=== PATIENT | female | born 1980 | race Caucasian/White ===

== ENCOUNTER 2017-04-21 14:46 | Day surgery (SDC) | payer OTHER ==
[2017-04-21 15:05] VITALS: BMI 22.6
--- NOTE | 2017-04-21 15:08 | PDOC ---
Rapid Medical Evaluation Chief Complaint: Vaginal Bleeding Time Seen by Provider: 04/21/17 15:05 Medical Evaluation: Allergies Allergy/AdvReac Type Severity Reaction Status Date / Time No Known Allergies Allergy Verified 04/21/17 15:01 Vital Signs Temp Pulse Resp BP Pulse Ox 98.7 F 79 19 110/63 99 04/21/17 15:01 04/21/17 15:01 04/21/17 15:01 04/21/17 15:01 04/21/17 15:01 04/21/17 15:05 I have performed a brief in-person evaluation of this patient. The patient presents with a chief complaint of vaginal spotting and pain to right lower abdomen x 2 weeks. States seen [facility] and referred for surgery due to ectopic . , unknown length of . Denies dizziness or shortness of breath Pertinent physical exam findings NAD lungs clear bilaterally heart s1s2 abdomen + bs I have ordered the following: labs urine hcg ordered The patient will proceed to the ED for further evaluation. Discharge Disposition - Diagnosis Ectopic - Discharge Dispostion Condition at time of disposition: Stable - Referrals - Patient Instructions - Post Discharge Activity
--- NOTE | 2017-04-21 15:46 | PDOC ---
History of Present Illness - History of Present Illness Initial Comments: 04/21/17 16:07 The patient is a 37 year old female , with no significant past medical history, who presents to the emergency department for evaluation of ectopic sent in by Dr. Holland. The patient states she went to see her OB Dr. Holland earlier today for right sided abdominal pain for the past week, that worsend 2 days ago. The patient states she had a sonogram performed while at Dr. Villatoro office who reported she has an ectopic and advised her to come to the ED for further evaluation. The patient reports she has had recent vaginal bleeding for approx. 2 weeks which stopped this past Friday (2 days ago) after passing a large blood clot. The patient states her last LMP was 2017 and she states she does not have a history of ectopic pregnancies. She denies recent fevers, chills, headache or dizziness. She denies recent nausea, vomit, diarrhea or constipation. She denies recent dysuria, frequency, urgency or hematuria. She denies recent chest pain or shortness of breath. Allergies: NKA OB: Dr. Holland <Boom Levin - Last Filed: 04/21/17 16:49> - General History Source: Patient Exam Limitations: No Limitations - History of Present Illness Travel History: No <Jose Denny - Last Filed: 04/21/17 17:34> - General Chief Complaint: Vaginal Bleeding Stated Complaint: RT SIDE PAIN, PRE-OP Time Seen by Provider: 04/21/17 15:05 Past History <Boom Levin - Last Filed: 04/21/17 16:49> - Past Medical History COPD: No Other medical history: DENIES. - Suicide/Smoking/Psychosocial Hx Smoking History: Never smoked <Jose Denny - Last Filed: 04/21/17 17:34> - Past Medical History Allergies/Adverse Reactions: Allergies Allergy/AdvReac Type Severity Reaction Status Date / Time No Known Allergies Allergy Verified 04/21/17 15:01 Home Medications: Ambulatory Orders NK [No Known Home Medication] 04/21/17 Review of Systems - Review of Systems Comments:: 04/21/17 16:08 CONSTITUTIONAL: No reported: Fever, Chills, Diaphoresis, Generalized Weakness, Malaise, Loss of Appetite HEENT: No reported: Rhinorrhea, Nasal Congestion, Throat Pain, Throat Swelling, Difficulty Swallowing, Mouth Swelling, Ear Pain, Eye Pain, Visual Changes CARDIOVASCULAR: No reported: Chest Pain, Syncope, Palpitations, Irregular Heart Rate, Lightheadedness, Peripheral Edema RESPIRATORY: No reported: Cough, Shortness of Breath, SOB with Exertion, Orthopnea, Wheezing , Stridor, Hemoptysis GASTROINTESTINAL: Present: (+) Right sided abdominal pain. No reported: Abdominal Distension, Nausea, Vomiting, Diarrhea, Constipation, Melena, Hematochezia GENITOURINARY: Present: (+) Vaginal bleeding. No reported: Dysuria, Frequency, Urgency, Hesitancy, Flank Pain, Genital Pain MUSCULOSKELETAL: No reported: Myalgia, Arthralgia, Joint Swelling, Back pain, Neck Pain SKIN: No reported: Rash, Itching, Pallor HEMEATOLOGIC/IMMUNOLOGIC: No reported: Easy Bleeding, Easy Bruising, Lymphadenopathy, Frequent infections ENDOCRINE: No reported: Unexplained Weight Gain, Unexplained Weight Loss, Heat Intolerance , Cold Intolerance NEUROLOGIC: No reported: Headache, Focal Weakness, Paresthesias, Vertigo, Lightheadedness, Unsteady Gait, Seizure, Mental Status Changes, Incontinence PSYCHIATRIC: No reported: Anxiety, Depression <Boom Levin - Last Filed: 04/21/17 16:49> *Physical Exam - Vital Signs Last Vital Signs Temp Pulse Resp BP Pulse Ox 98.7 F 79 19 110/63 99 04/21/17 15:01 04/21/17 15:01 04/21/17 15:01 04/21/17 15:01 04/21/17 15:01 - Physical Exam Comments: 04/21/17 16:08 GENERAL: The patient is awake, alert, and fully oriented, Nontoxic - in no acute distress. HEAD: Normocephalic, atraumatic. EYES: extraocular movements intact, sclera anicteric, conjunctiva clear. ENT: Normal voice, Moist mucous membranes. NECK: Normal range of motion, supple LUNGS: Breath sounds equal, clear to auscultation bilaterally. No wheezes, no rhonchi, no rales. HEART: Regular rate and rhythm, without murmur, rub or gallop. ABDOMEN: (+) Mild right lower quadrant tenderness. No guarding, no rebound. EXTREMITIES: Normal range of motion, no edema. No clubbing or cyanosis. No cords , erythema, or tenderness. NEUROLOGICAL: No facial assymetry, Normal speech, PSYCH: Normal mood, normal affect. SKIN: Warm, Dry, normal turgor, <Boom Levin - Last Filed: 04/21/17 16:49> - Vital Signs Last Vital Signs Temp Pulse Resp BP Pulse Ox 98.7 F 79 19 110/63 99 04/21/17 15:01 04/21/17 15:01 04/21/17 15:01 04/21/17 15:01 04/21/17 15:01 <Jose Denny - Last Filed: 04/21/17 17:34> Heart Score/ECG Review - ECG Impressions Comment:: 04/21/17 16:51 Twelve-lead EKG was performed and reviewed by me. There is normal sinus rhythm with a normal rate. rate of 60 The axis is normal. The intervals are normal. There is normal R wave progression There are no ST or T wave abnormalities. Impression: Normal twelve-lead EKG <Jose Denny - Last Filed: 04/21/17 17:34> ED Treatment Course - LABORATORY CBC & Chemistry Diagram: 04/21/17 15:50 04/21/17 15:50 <Boom Levin - Last Filed: 04/21/17 16:49> - LABORATORY CBC & Chemistry Diagram: 04/21/17 15:50 04/21/17 15:50 <Jose Denny - Last Filed: 04/21/17 17:34> Medical Decision Making - Medical Decision Making 04/21/17 16:[address] Holland at 4:45 pm. Case discussed. <Boom Levin - Last Filed: 04/21/17 16:49> - Medical Decision Making 04/21/17 15:43 37y F presents with RLQ abd pain. Pt notes RLQ pain ~8 days, started when she went skiing, she thought it was a GI bug as her friends were also sick. She went to fu with dr. Holland who dx her with an ectopic preg on US and sent her to the ED for further evaluation and for operative management. Pt notes mild vag spotting/bleeding. denies any cp, sob, dizziness, fever/chills, back pain. will obtain preop labs, ekg pt declines pain medications pt NPO since approx 10am will dw dr. holland A portion of this note was documented by scribe services under my direction. I have reviewed the details of the note, within reason, and agree with the documentation with the following case summary and management plan written by me 04/21/17 17:[address] holland pt had free fluid and mass on her RLQ suspected ruptured ectopic pt is remarkably well appearing hemodynamically stable beta is 15k pt heading to the OR will admit under dr. Holland <Jose Denny - Last Filed: 04/21/17 17:34> *DC/Admit/Observation/Transfer - Attestations Scribe Attestion: 04/21/17 16:08 Documentation prepared by Boom Levin, acting as medical technicians for Jose Denny MD. <Boom Levin - Last Filed: 04/21/17 16:49> - Discharge Dispostion Admit: Yes <Jose Denny - Last Filed: 04/21/17 17:34> Diagnosis at time of Disposition: Ectopic Qualifiers: Location of ectopic : unspecified location Intrauterine status: unspecified Qualified Code(s): O00.90 - Unspecified ectopic without intrauterine - Discharge Dispostion Condition at time of disposition: Stable
[2017-04-21 16:06] LABS: BASO % 0.6 % (0-2.0); HEMATOCRIT 37.9 % (32.4-45.2); HEMOGLOBIN 12.9 GM/dL (10.7-15.3); LYMPH % 20.3 % (8-40); MCH 31.9 pg (25.7-33.7); MCHC 33.9 g/dl (32.0-36.0); MEAN PLT VOLUME 8.7 fl (7.5-11.1); MONO % 5.3 % (3.8-10.2); NEUT % 71.8 % (42.8-82.8); PLATELET COUNT 262 K/MM3 (134-434); RBC 4.03 M/mm3 (3.60-5.2); RDW 13.7 % (11.6-15.6); WHITE BLOOD COUNT 5.9 K/mm3 (4.0-10.0)
[2017-04-21 16:30] LABS: INR 1.11 (0.82-1.09); PROTHROMBIN TIME (PATIENT) 12.5 SEC (9.98-11.88)
[2017-04-21 16:33] LABS: ACTIVATED PTT 28.6 SECONDS (26.9-34.4)
[2017-04-21 16:34] LABS: ALBUMIN 4.3 g/dl (3.4-5.0); ALK PHOS 63 U/L (45-117); ANION GAP 11 (8-16); BILIRUBIN,TOTAL 0.4 mg/dL (0.2-1.0); BLOOD UREA NITROGEN 8 mg/dL (7-18); CALCIUM 9.2 mg/dL (8.5-10.1); CHLORIDE 104 mmol/L (98-107); CO2 26 mmol/L (21-32); CREATININE 0.7 mg/dL (0.55-1.02); GLUCOSE,RANDOM 86 mg/dL (74-106); POTASSIUM 3.9 mmol/L (3.5-5.1); SGOT/AST 25 U/L (15-37); SGPT/ALT 28 U/L (12-78); SODIUM 141 mmol/L (136-145); TOT PROT 8.1 g/dl (6.4-8.2)
[2017-04-21] MEDS ORDERED: KETOROLAC TROMETHAMINE 30 MG/1 ML VIAL ONE (17:36)
[2017-04-21] MEDS ORDERED: PROPOFOL 20 ML ONE (17:36)
[2017-04-21] MEDS ORDERED: SUCCINYLCHOLINE CHLORIDE 200 MG/10 ML VIAL ONE (17:36)
[2017-04-21] MEDS ORDERED: DEXAMETHASONE SOD PHOSPHATE 4 MG/1 ML VIAL ONE (17:36)
[2017-04-21] MEDS ORDERED: fentaNYL CITRATE 250 MCG/5 ML VIAL ONE (17:36)
[2017-04-21] MEDS ORDERED: LIDOCAINE HCL/PF 2% SDV 5ML VIAL ONE (17:36)
[2017-04-21] MEDS ORDERED: ROCURONIUM BROMIDE 50 MG/5 ML VIAL ONE (17:55)
[2017-04-21] MEDS ORDERED: BUPIVACAINE HCL/PF 0.25% (2.5MG/ML) 10 ML VIAL IJ ONE ×2 (18:18→18:36)
[2017-04-21] MEDS ORDERED: BUPIVACAINE HCL/PF 0.5% (5MG/ML) 10 ML VIAL ONE (18:21)
[2017-04-21] MEDS ORDERED: BUPIVACAINE HCL/PF 0.5% (5MG/ML) 10 ML VIAL IJ ONE (18:36)
[2017-04-21] MEDS ORDERED: NEOSTIGMINE METHYLSULFATE 0.5 MG/ML - 10 ML MDV ONE (18:37)
[2017-04-21] MEDS ORDERED: GLYCOPYRROLATE 0.2 MG/1 ML VIAL ONE ×2 (18:37)
[2017-04-21] MEDS ORDERED: PROMETHAZINE HCL 25 MG/1 ML VIAL IVPUSH PRN (18:52)
[2017-04-21] MEDS ORDERED: ONDANSETRON 4 MG/2 ML VIAL IVPUSH PRN (18:52)
[2017-04-21] MEDS ORDERED: oxyCODONE HCL 5 MG TABLET PO PRN (18:52)
[2017-04-21] MEDS ORDERED: LACTATED RINGERS SOLUTION 1,000 ML IV SCH (19:00)
--- NOTE | 2017-04-21 19:03 | OP ---
Operative Note - Note: Operative Date: 04/21/17 Pre-Operative Diagnosis: Ruptured right ectopic Operation: Laparoscopic right salpingectomy, D&C Findings: Large right ectopic , 100ml hemoperitoneum Post-Operative Diagnosis: Same as Pre-op Surgeon: Jaden Holland Director Behavioral Health: Julián Deng Anesthesiologist/GAS APPLIANCE REPAIRER: Hay Batres Anesthesia: General Specimens Removed: Right Fallopian tube, Endometrial curettings Estimated Blood Loss (mls): 100 (Hemoperitoneum) Drains & Tubes with Location: Johnson cath Drains, Volume Out (mls): 75 Blood Volume Replaced (mls): 0 Fluid Volume Replaced (mls): 1,000 Operative Report Dictated: Yes
--- NOTE | 2017-04-21 19:19 | HP ---
Past Medical History - Primary Care Physician PCP:: Jaden Holland - Admission Chief Complaint: 37yo P2 female was seen in the office today with a positive test, c/o vaginal bleeding and right pelvic pain. History of Present Illness: Pt had mild RLQ pain. Plevic US, done in the office, showed a large amount of hemoperitoneum and a suspected right ectopic . The pt was noted to be clinically well and o/w stable. She was referred to the ER for evaluation. History Source: Patient Limitations to Obtaining History: No Limitations - Past Medical History SENIOR RADIATION THERAPIST: No: Alzheimer's, CVA, Dementia, Migraine, Multiple Sclerosis, Peripheral Neuropathy, Parkinson's, Seizure, Syncope, TIA, Vertigo, Other Cardiovascular: No: AFIB, Aneurysm, Aortic Insufficiency, Aortic Stenosis, CAD, CHF, Deep Vein Thrombosis, HTN, Hyperlipdemia, MT, Mitral Insufficiency, Mitral Stenosis, Murmur, Pulmonary Hypertension, Other Pulmonary: No: Asthma, Bronchitis, Cancer, COPD, O2 Dependent, Pneumonia, Previously Intubated, Pulmonary Embolus, Pulmonary Fibrosis, Sleep Apnea, Other Gastrointestinal: No: Ascites, Cancer, Constipation, Crohn's Disease, Diverticulitis, Diverticulosis, Esophageal Varices, Gastritis, GERD, GI Bleed, Hemorrhoids, Hiatal Hernia, Inflamatory Bowel Disease, Irritable Bowel Disease, Pancreatitis, Peptic Ulcer Disease, Ulcerative Colitis, Other Hepatobiliary: No: Cirrhosis, Cholelithiasis, Cholecystitis, Choledocholithiasis , Hepatitis A, Hepatitis B, Hepatitis C, Other Renal/: No: Renal Failure, Renal Inusuff, BPH, Cancer, Hematuria, Hemodialysis , Neurogenic Bladder, Renal Calculi, UTI, Other Reproductive: No: Ectopic , Endometriosis, Fibroids, PID, Polycystic Ovary Syndrome, Postmenopausal, Other ...Para: 2 () ...Term: 2 ...LMP: 02/16/18 Heme/Onc: No: Anemia, B12 Deficiency, Bleeding Disorder, Cancer, Current Chemotherapy, Current Radiation Therapy, Hemochromatosis, Hypercoaguable State, Myeloproliferative Synd, Sickle Cell Disease, Sickle Cell Trait, Thrombocytopenia, Other Infectious Disease: No: AIDS, C-Diff, Herpes Zoster, HIV, MRSA, STD's, Tuberculosis, VREF, Other Psych: No: Addictions, Anxiety, Bipolar, Depression, Panic, Psychosis, Schizophrenia, Other Musculoskeletal: No: Bursitis, Chronic low back pain, Hemiparesis, Hemiplegia, Osteoarthritis, Paraplegia, Other Rheumatology: No: Fibromyalgia, Gout, Lupus, Rheumatoid Arthritis, Sarcoidosis, Vasculitis, Other ENT: No: Allergic Rhinitis, Sinusitis, Other Endocrine: No: Justin's Disease, Elmore's Disease, Diabetes Insipidus, Diabetes Mellitus, Hyperparathyroidism, Hyperthyroidism, Hypothyroidism, Osteopenia, SIADH, Other Dermatology: No: Basal Cell, Cellulitis, Eczema, Melanoma, Psoriasis, Squamous Cell, Other - Past Surgical History Past Surgical History: Yes: None Hx Myomectomy: No Hx Transabdominal Cerclage: No - Smoking History Smoking history: Never smoked - Alcohol/Substance Use Hx Alcohol Use: No History of Substance Use: reports: None - Social History Usual Living Arrangement: Yes: With Significant Other, With Child ADL: Independent Occupation: Patient Service Technician P[employer] History of Recent Travel: Yes Home Medications - Allergies Allergies/Adverse Reactions: Allergies Allergy/AdvReac Type Severity Reaction Status Date / Time No Known Allergies Allergy Verified 04/21/17 15:01 - Home Medications Home Medications: Ambulatory Orders NK [No Known Home Medication] 04/21/17 Family Disease History - Family Disease History Family History: Unremarkable Review of Systems - Review of Systems Constitutional: reports: No Symptoms Eyes: reports: No Symptoms HENT: reports: No Symptoms Neck: reports: No Symptoms Cardiovascular: reports: No Symptoms Respiratory: reports: No Symptoms Gastrointestinal: reports: Abdominal Pain (mild) Genitourinary: reports: Vaginal Bleeding Breasts: reports: No Symptoms Reported Musculoskeletal: reports: No Symptoms Integumentary: reports: No Symptoms Neurological: reports: No Symptoms Endocrine: reports: No Symptoms Hematology/Lymphatic: reports: No Symptoms Psychiatric: reports: No Symptoms Pain Intensity: 4 Physical Exam-SELF STORAGE MANAGER Vital Signs: Vital Signs Temperature 98.7 F 04/21/17 15:01 Pulse Rate 66 04/21/17 16:48 Respiratory Rate 18 04/21/17 16:48 Blood Pressure 105/57 04/21/17 16:48 O2 Sat by Pulse Oximetry (%) 100 04/21/17 16:48 Constitutional: Yes: Well Nourished, No Distress, Calm Eyes: Yes: WNL, Conjunctiva Clear HENT: Yes: WNL, Atraumatic, Normocephalic Neck: Yes: WNL, Supple, Trachea Midline Cardiovascular: Yes: WNL, Regular Rate and Rhythm Respiratory: Yes: WNL, Regular, CTA Bilaterally Gastrointestinal: Yes: Normal Bowel Sounds, Soft, Tenderness (mild, RLQ) ...Rectal Exam: Yes: Deferred Renal/: Yes: WNL Pelvis: Yes: WNL External Genitalia: Yes: Normal Vaginal Exam: Yes: Bleeding Cervix: Yes: Normal (os FT open) Musculoskeletal: Yes: WNL Extremities: Yes: WNL Edema: No Integumentary: Yes: WNL Neurological: Yes: WNL, Alert, Oriented ...Motor Strength: WNL Psychiatric: Yes: WNL, Alert, Oriented Labs: CBC, BMP 04/21/17 15:50 04/21/17 15:50 Imaging - Results Ultrasound: Image Reviewed Assessment/Plan 37yo P2 with suspected ruptured right ectopic . The pt has all of the signs of ectopic but feels very well and is mostly asymptomatic, except for some RLQ cramping. We discussed that there is some diagnostic uncertainty regarding the diagnosis since she feels so well. The plan is to proceed with laparoscopy and D&C, followed by excision of ectopic , if it is found. We had discussed the risks, benefits, alternatives of surgery at length including but not limited to infection, bleeding, scarring, perforation, amenorrhea, infertility, hysterectomy, injury to surrounding/underlying organs or structure, need for additional surgery to repair/treat any complications, etc. The patient verbalized understanding and requested to proceed with surgery. I emphasized that all surgeries have risks and no guarantees can be provided.
[2017-04-21 21:12] VITALS: BP 109/63; PULSE 61; TEMP 98.4
--- NOTE | 2017-04-22 07:55 | OP ---
DATE OF OPERATION: 04/21/2017 PREOPERATIVE DIAGNOSIS: Ruptured right ectopic . POSTOPERATIVE DIAGNOSIS: Ruptured right ectopic . PROCEDURE: Laparoscopic right salpingectomy, dilatation and curettage. SURGEON: Jaden Holland MD GEOLOGICAL ENGINEER: Julián Deng MD ANESTHESIOLOGIST: Hay Batres MD ANESTHESIA: General endotracheal. COMPLICATIONS: None. ESTIMATED BLOOD LOSS: 100 mL of hemoperitoneum. INTRAVENOUS FLUIDS: 1000 mL of crystalloids. URINE OUTPUT: 75 mL of clear urine at the end of the procedure. PATHOLOGY: Endometrial curettings, right fallopian tube with ectopic . FINDINGS: Examination under anesthesia revealed a small anteverted uterus with no pelvic or adnexal masses. The cervical os was fingertip dilated with light active bleeding. Endometrial curettage produced very scant tissue which was collected and sent to Pathology. The laparoscopy revealed a large amount of hemoperitoneum, at least 100 mL; a large right ectopic that was ruptured and bleeding and was also adherent loosely to the appendix. The right ovary was normal. The left fallopian tube and ovary were normal. The visualized portion of liver, stomach, and gallbladder were normal. The uterus was normal. The visualized portions of bowels were normal. DESCRIPTION OF PROCEDURE: The patient was met preoperatively. Risks, benefits, and alternatives of surgery were discussed in details. All questions were answered. The patient was then brought to the OR with the IV running. The patient was placed on a surgical table in a supine position. General endotracheal anesthesia was achieved without difficulty. The patient was then placed in a dorsal lithotomy position using adjustable Efrem stirrups. The patient was examined under anesthesia with the findings as described above. The patient was then prepped and draped in the usual sterile fashion. A sterile speculum was introduced inside the vagina. The cervix was grasped with the polyp forceps. Uterine curettage was then performed using a vacuum curette and a sharp curette to remove endometrial tissue. The tissue was noted to be very scant and was sent to Pathology for evaluation. A HUMI uterine manipulator was introduced inside the uterine cavity. A Johnson catheter was introduced inside the bladder and left to drain to gravity. The surgeons then re-gloved and proceeded with a laparoscopy. A 5-mm intraumbilical incision was made with knife. A Veress needle was introduced through the umbilical incision into the peritoneal cavity. Intraperitoneal placement was confirmed, and pneumoperitoneum was produced using CO2 gas. The intraperitoneal pressure was limited to 15 mmHg. The Veress needle was then removed, and a 5-mm trocar was placed through the umbilical incision. A laparoscope was used to survey the abdomen and pelvis with the findings as described above. Large amounts of hemoperitoneum were noticed. A ruptured right ectopic was noticed. The ectopic was bleeding and loosely adherent to the appendix. A 7-mm incision was made in the right lower quadrant, and a 5-mm trocar was introduced through that incision under direct visualization. A 10-mm trocar was also introduced through the left lower quadrant under direct visualization. The hemoperitoneum was evacuated using suction. The right fallopian tube was then grasped at the fimbriated end. Since the right fallopian tube was ruptured and bleeding, the decision was made to proceed with the salpingectomy. The LigaSure instrument was then used to excise the right fallopian tube with good hemostasis. The right fallopian tube was then placed inside the Endobag and removed through the 10-mm port. The tissue was sent to Pathology for evaluation. The abdomen and pelvis were copiously irrigated with normal saline. Once the saline was aspirated, good hemostasis was noted. The uterus, both ovaries, and the left fallopian tube were within normal limits. The 10-mm incision was then closed using a 2-0 suture for the fascia. All of the skin incisions were then closed using 4-0 Biosyn suture for the skin. The uterine manipulator and Johnson catheter were removed. Sponge, lap, and instrument counts were correct. The patient was transferred to recovery room awake and in stable condition. Anthony MARTINEZ/[id number]
--- NOTE | 2017-04-22 14:23 | EKG ---
Test Reason : Blood Pressure : / mmHG Vent. Rate : 060 BPM Atrial Rate : 060 BPM P-R Int : 132 ms QRS Dur : 086 ms QT Int : 416 ms P-R-T Axes : 077 076 065 degrees QTc Int : 416 ms NORMAL SINUS RHYTHM NORMAL ECG NO PREVIOUS ECGS AVAILABLE Confirmed by MD Azeem, Gustavo ([id number]) on 04/22/2017 2:22:46 PM Referred By: Confirmed By:Gustavo Gann MD
--- NOTE | 2017-04-23 09:18 | PATH ---
Surgical Pathology Report Patient Name: KANCHAN HUTSON [facility]. Rec. #: [id number] /Age/Gender: 1980 (Age: 37) / F Account: [id number] Location: AMBULATORY SURG Taken: 04/21/2017 Received: 04/22/2017 Reported: 04/23/2017 Physicians: Jaden Holland M.D. Specimen(s) Received A: ENDOMETRIAL CURETTINGS B: RIGHT FALLOPIAN TUBE, ECTOPIC Clinical History Ectopic Final Diagnosis A. ENDOMETRIAL CURETTINGS, SUCTION DILATION AND CURETTAGE: FRAGMENTS OF GESTATIONAL ENDOMETRIUM. B. FALLOPIAN TUBE, RIGHT, ECTOPIC , LAPAROSCOPIC SALPINGECTOMY: CHORIONIC VILLI IN A BACKGROUND OF HEMORRHAGE PRESENT WITHIN THE FALLOPIAN TUBE, CONSISTENT WITH ECTOPIC . Electronically Signed Joellen Mckee M.D. Gross Description A. Received in formalin labeled "endometrial curettings," is a 5.0 x 4.0 x 0.4 cm aggregate of tang-brown soft tissue fragments admixed with blood clot. The formalin is filtered and the specimen is entirely submitted in 4 cassettes. B. Received in formalin labeled "right fallopian tube with ectopic ," is a 9.5 x 8.0 x 1.5 cm aggregate of tang-brown soft tissue fragments admixed with blood clot. There are multiple segments of possible fallopian tube identified. No definite villous tissue or somatic tissue is identified. Network And Threat Support Specialist sections are submitted in 3 cassettes. /04/22/2017 [place]/04/22/2017
== END 2017-04-21 22:45 | disposition home or self-care (01) ==
LOC: JER 14:46 → JASUSAT 16:44 → J3W 20:31 → JASUSAT 22:45
PROVIDERS: ATTEND Obstetrics & Gynecology
PROC: 0UB54ZZ Excision of Right Fallopian Tube, Percutaneous Endoscopic Approach (ICD-10-PCS; principal; 2017-04-21 18:00)
PROC: 0UDB7ZZ Extraction of Endometrium, Via Natural or Artificial Opening (ICD-10-PCS; 2017-04-21 18:00)
DX: O00.101 Right tubal pregnancy without intrauterine pregnancy (principal)
CPT/HCPCS: 36415; 80053; 84702; 85025; 85610; 85730; 86850; 86900; 86901; 88305-TC; 93005; 93010; 94760; 99285-25